=== PATIENT | male | born 1985 | race Two or more races ===

== ENCOUNTER 2017-12-21 08:38 | Emergency (ER) | payer SELFPAY ==
[2017-12-21 08:45] VITALS: BMI 27.7
[2017-12-21 08:47] VITALS: BP 117/75; PULSE 72; RESP 20; TEMP 99.1; O2SAT 98
--- NOTE | 2017-12-21 09:47 | C.PDOC ---
History Of Present Illness 32yo male, right hand dominant, presents to ED for evaluation of left wrist pain for the past 3 days. Patient states he tripped and fell, injuring his left wrist. he denies any other injuries, weakness, numbness or tingling in his left wrist. No other medical complaints. Time Seen by Provider: 12/21/17 09:21 Chief Complaint (Nursing): Finger,Hand,&Wrist History Per: Patient History/Exam Limitations: no limitations Onset/Duration Of Symptoms: Days (3) Current Symptoms Are (Timing): Still Present Quality: "Pain" Exacerbating Factor(s): Strenuous Use Of Affected Area Additional History Per: Patient Past Medical History Reviewed: Historical Data, Nursing Documentation, Vital Signs Vital Signs: Last Vital Signs Temp 99.1 F 12/21/17 08:44 Pulse 72 12/21/17 08:44 Resp 20 12/21/17 08:44 BP 117/75 12/21/17 08:44 Pulse Ox 98 12/21/17 10:41 - Medical History PMH: No Chronic Diseases Surgical History: No Surg Hx Family History: States: No Known Family Hx, Unknown Family Hx - Social History Hx Alcohol Use: Yes Hx Substance Use: No - Immunization History Hx Tetanus Toxoid Vaccination: No Hx Influenza Vaccination: No Hx Pneumococcal Vaccination: No Review Of Systems Except As Marked, All Systems Reviewed And Found Negative. Musculoskeletal: Positive for: Hand Pain (left) Neurological: Negative for: Weakness, Numbness Physical Exam - Physical Exam Appears: Non-toxic, No Acute Distress Cardiovascular: Rhythm Regular Extremity: Normal ROM, No Tenderness (no snuff box tenderness, nv intact), No Deformity, Swelling (swelling to dorsal distal wrist) Neurological/Psych: Oriented x3 ED Course And Treatment O2 Sat by Pulse Oximetry: 98 (RA) Pulse Ox Interpretation: Normal Medical Decision Making Medical Decision Making: Impression: Wrist sprain Plan: -- XR Left wrist -- XR left forearm -- Motrin 600mg PO Progress: 0945 XR reviewed by me and shows no fractures or dislocations. Splint placed by multimedia technician and checked by me. Neurovascularly intact s/p placement. Patient stable for discharge home, instructed to follow up with PMD in 2-3 days. Disposition Counseled Patient/Family Regarding: Studies Performed, Diagnosis, Need For Followup, Rx Given - Disposition Referrals: [facility] [Outside] Disposition: HOME/ ROUTINE Disposition Time: 09:45 Condition: STABLE Additional Instructions: follow up with medical clinic within 2 days call to make an appointment take motrin or aleve as needed for pain return to ER if symptoms worsens or progress apply ice to injured area Instructions: Wrist Sprain (DC) Forms: General Discharge Instructions, [facility] (French), Work Excuse - Clinical Impression Clinical Impression: Wrist sprain - Scribe Statement The provider has reviewed the documentation as recorded by the Scribe (Ayesha Mcguire) All medical record entries made by the Scribe were at my direction and personally dictated by me. I have reviewed the chart and agree that the record accurately reflects my personal performance of the history, physical exam, medical decision making, and the department course for this patient. I have also personally directed, reviewed, and agree with the discharge instructions and disposition.
--- NOTE | 2017-12-21 10:36 | RAD ---
PROCEDURE: Left Wrist Radiographs. HISTORY: R/O FX COMPARISON: None. FINDINGS: BONES: Normal. No fracture. JOINTS: Normal. No dislocation. SOFT TISSUES: Normal. OTHER FINDINGS: None. IMPRESSION: Normal left wrist radiographs.
--- NOTE | 2017-12-21 10:37 | RAD ---
PROCEDURE: Radiographs of the Left Forearm HISTORY: R/O FX COMPARISON: None available. TECHNIQUE: Frontal and lateral views obtained. FINDINGS: BONES: No fracture or destructive lesion. JOINT SPACES: Unremarkable. OTHER FINDINGS: None. IMPRESSION: Unremarkable radiographs of the left forearm.
== END 2017-12-21 09:58 | disposition home or self-care (01) ==
LOC: C.ER 08:38
DX: S63.502A Unspecified sprain of left wrist, initial encounter (principal); W01.0XXA Fall on same level from slipping, tripping and stumbling without subsequent striking against object, initial encounter